=== PATIENT | male | born 1990 | race American Indian/Alaskan Native ===

== ENCOUNTER 2016-09-22 16:01 | Emergency (ER) | payer OTHER ==
[2016-09-22 16:21] VITALS: RESP 18; TEMP 98.6
[2016-09-22 18:16] VITALS: BP 124/78; PULSE 78; O2SAT 98
--- NOTE | 2016-09-22 18:33 | C.PDOC ---
History Of Present Illness 26 year old male presents to the ED with complaints of right ear pain and decreased hearing for the past 2 days. Patient states he was sick last week with a fever and sore throat but it resolved 2 days ago. Denies discharge, fever , rash, mastoid pain, or any other complaints at this time. Chief Complaint (Nursing): ENT Problem History Per: Patient History/Exam Limitations: None Onset/Duration Of Symptoms: Days Current Symptoms Are (Timing): Still Present Severity: Mild Past Medical History Reviewed: Historical Data, Nursing Documentation, Vital Signs Vital Signs: Last Vital Signs Temp 98.6 F 09/22/16 16:19 Pulse 78 09/22/16 18:00 Resp 18 09/22/16 18:00 BP 124/78 09/22/16 18:00 Pulse Ox 98 09/22/16 18:37 - Medical History PMH: No Chronic Diseases Family History: States: Unknown Family Hx - Social History Hx Alcohol Use: No Hx Substance Use: No - Immunization History Hx Tetanus Toxoid Vaccination: No Hx Influenza Vaccination: No Hx Pneumococcal Vaccination: No Review Of Systems Except As Marked, All Systems Reviewed And Found Negative. Constitutional: Negative for: Fever, Chills ENT: Positive for: Ear Pain (+Decreased hearing). Negative for: Ear Discharge, Nose Discharge, Throat Pain Physical Exam - Physical Exam Appears: Non-toxic, No Acute Distress Skin: Normal Color, Warm, Dry Head: Atraumatic, Normacephalic Eye(s): bilateral: Normal Inspection Ear(s): Left: Other (+Some cerumen ), Right: TM Erythema Nose: Normal Oral Mucosa: Moist Throat: Normal, No Erythema, No Exudate Neck: Supple Chest: Symmetrical Extremity: Normal ROM Neurological/Psych: Oriented x3, Normal Speech, Normal Cognition ED Course And Treatment O2 Sat by Pulse Oximetry: 98 (Room air) Pulse Ox Interpretation: Normal Progress Note: Rx given and follow up with the clinic advised. Disposition - Disposition Referrals: [facility] [Outside] [facility] [Outside] Disposition: HOME/ ROUTINE Disposition Time: 17:00 Condition: GOOD Additional Instructions: Thank you for letting us take care of you today. Your provider was Dr. Heck. You were treated for ear infection. The emergency medical care you received today was directed at your acute symptoms. If you were prescribed any medication, please fill it and take as directed. It may take several days for your symptoms to resolve. Return to the Emergency Department if your symptoms worsen, do not improve, or if you have any other problems. Please contact your doctor or call one of the physicians/clinics you have been referred to that are listed on the Patient Visit Information form that is included in your discharge packet. Bring any paperwork you were given at discharge with you along with any medications you are taking to your follow up visit. Our treatment cannot replace ongoing medical care by a primary care provider (PCP) outside of the emergency department. Thank you for allowing the [facility] team to be part of your care today. Follow up with the clinic in 2-3 days to be re-evaluated. Prescriptions: Amoxicillin [Amoxil 500 mg Cap] 500 mg PO Q8 #21 cap Instructions: Otitis Media (ED) - Clinical Impression Clinical Impression: Otitis media - Scribe Statement The provider has reviewed the documentation as recorded by the Scribe Ramy Rouse. Provider Attestation: All medical record entries made by the Scribe were at my direction and personally dictated by me. I have reviewed the chart and agree that the record accurately reflects my personal performance of the history, physical exam, medical decision making, and the department course for this patient. I have also personally directed, reviewed, and agree with the discharge instructions and disposition.
== END 2016-09-22 18:00 | disposition home or self-care (01) ==
LOC: C.ER 16:01
DX: H66.91 Otitis media, unspecified, right ear (principal)

== ENCOUNTER 2016-12-04 03:02 | Emergency (ER) | payer OTHER ==
[2016-12-04 03:12] VITALS: BP 134/80; PULSE 89; RESP 16; TEMP 98.7; O2SAT 97
--- NOTE | 2016-12-04 03:30 | C.PDOC ---
History Of Present Illness 26 year old male presents to the ED with complaints of sore throat, redness and drainage of both eyes for one week. Patient denies fever, chills, or vomiting. Chief Complaint (Nursing): Eye Problem History Per: Patient History/Exam Limitations: no limitations Onset/Duration Of Symptoms: Days (1 week ) Current Symptoms Are (Timing): Still Present Injury To Eye?: No Associated Symptoms: Discharge From Eye (drainagefrom the eye ) Recent travel outside of the [place]: No Past Medical History Reviewed: Historical Data, Nursing Documentation, Vital Signs Vital Signs: Last Vital Signs Temp 98.7 F 12/04/16 03:10 Pulse 89 12/04/16 03:10 Resp 16 12/04/16 03:10 BP 134/80 12/04/16 03:10 Pulse Ox 97 12/04/16 03:31 Family History: States: Unknown Family Hx - Social History Hx Alcohol Use: No Hx Substance Use: No - Immunization History Hx Tetanus Toxoid Vaccination: No Hx Influenza Vaccination: No Hx Pneumococcal Vaccination: No Review Of Systems Constitutional: Negative for: Fever, Chills, Sweats Eyes: Positive for: Redness (bilateral eye redness), Other (drainage of both eyes ) ENT: Positive for: Other (sore throat ) Cardiovascular: Negative for: Chest Pain, Palpitations Respiratory: Negative for: Cough, Shortness of Breath Gastrointestinal: Negative for: Nausea, Vomiting, Abdominal Pain, Diarrhea Neurological: Negative for: Headache Physical Exam - Physical Exam Appears: Non-toxic, No Acute Distress Skin: Warm, Dry Head: Atraumatic Eye(s): bilateral: PERRL, EOMI, Other (No specific drainage noted. Conjuctiva erythema bilaterally. ) Throat: No Exudate, Other (throat congested ) Neck: Supple, Other (bilateral cervical node ) Chest: Symmetrical, No Deformity Cardiovascular: Rhythm Regular, No Rhythm Irregular Respiratory: No Rales, No Rhonchi, No Stridor, No Wheezing ED Course And Treatment O2 Sat by Pulse Oximetry: 97 Disposition Counseled Patient/Family Regarding: Diagnosis - Disposition Referrals: [facility] [Outside] Disposition: HOME/ ROUTINE Disposition Time: 03:26 Condition: STABLE Prescriptions: Amoxicillin [Amoxil 500 mg Cap] 500 mg PO Q8 #20 cap Gentamicin Sulfate [Garamycin 0.3% Opth] 2 drop OU TID #1 bottle Instructions: Pharyngitis (ED), Conjunctivitis (ED) - POA Present On Arrival: None - Clinical Impression Clinical Impression: Conjunctivitis, Pharyngitis - Scribe Statement The provider has reviewed the documentation as recorded by the Scribkody Eduardo All medical record entries made by the Dewayneibkody were at my direction and personally dictated by me. I have reviewed the chart and agree that the record accurately reflects my personal performance of the history, physical exam, medical decision making, and the department course for this patient. I have also personally directed, reviewed, and agree with the discharge instructions and disposition.
== END 2016-12-04 03:42 | disposition home or self-care (01) ==
LOC: C.ER 03:02
DX: J02.9 Acute pharyngitis, unspecified (principal); H10.9 Unspecified conjunctivitis